=== PATIENT | female | born 1970 | race Caucasian/White ===

== ENCOUNTER 2017-01-06 17:29 | Emergency (ER) | payer BC ==
[2017-01-06 18:42] VITALS: BP 103/58
--- NOTE | 2017-01-06 18:49 | UC ---
Complaint Female HPI - HPI Summary HPI Summary: patient complains of bladder and vaginal irritation since this morning. - History Of Current Complaint Chief Complaint: UCGU Stated Complaint: URINARY Time Seen by Provider: 01/06/17 18:35 Hx Obtained From: Patient Hx Last Menstrual Period: 2 wks ago ?: No Onset/Duration: Sudden Onset, Lasting Hours Timing: Lasting Hours Severity Initially: Mild Severity Currently: Mild Character: Burning Aggravating Factor(s): Urination - Allergies/Home Medications Allergies/Adverse Reactions: Allergies Allergy/AdvReac Type Severity Reaction Status Date / Time Amoxicillin [From Augmentin] Allergy Nausea Verified 01/06/17 18:35 Azithromycin [From Zithromax] Allergy Hives Verified 01/06/17 18:35 Cephalexin Allergy Rash Verified 01/06/17 18:35 Clavulanic Acid Allergy Nausea Verified 01/06/17 18:35 [From Augmentin] Doxycycline Allergy Rash Verified 01/06/17 18:35 Levofloxacin [From Levaquin] Allergy Hives Verified 01/06/17 18:35 Sulfa Antibiotics Allergy Hives Verified 01/06/17 18:35 Home Medications: Home Medications Methylphenidate TAB* [Ritalin TAB*] 10 mg PO DAILY 01/06/17 [History Confirmed 01/06/17] Multivitamins/Minerals TAB* [Thera M Plus TAB*] 1 tab PO DAILY 01/06/17 [ History Confirmed 01/06/17] Suvorexant [Belsomra] 20 mg PO BEDTIME 01/06/17 [History Confirmed 01/06/17] PMH/Surg Hx/FS Hx/Imm Hx Previously Healthy: Yes - Surgical History Surgical History: Yes Surgery Procedure, Year, and Place: 2009 fibroid removed from uterus, tonsillectomy, lasik eye surgery 2000, cyts removed from from right leg - Family History Known Family History: Negative: Cardiac Disease, Hypertension - Social History Alcohol Use: Occasionally Substance Use Type: None Smoking Status (MU): Never Smoked Tobacco Review of Systems Constitutional: Negative Skin: Negative Eyes: Negative ENT: Negative Respiratory: Negative Cardiovascular: Negative Gastrointestinal: Abdominal Pain Genitourinary: Dysuria, Frequency, Urgency Motor: Negative Neurovascular: Negative Musculoskeletal: Negative Neurological: Negative Psychological: Negative All Other Systems Reviewed And Are Negative: Yes Physical Exam Triage Information Reviewed: Yes Appearance: Well-Appearing, Well-Nourished, Pain Distress Vital Signs: Initial Vital Signs Temp 99.2 F 01/06/17 18:37 Pulse 61 01/06/17 18:37 Resp 16 01/06/17 18:37 BP 103/58 01/06/17 18:37 Pulse Ox 100 01/06/17 18:37 Vital Signs Reviewed: Yes Eye Exam: Normal Eyes: Positive: Conjunctiva Clear ENT Exam: Normal ENT: Positive: Normal ENT inspection, Hearing grossly normal, TMs normal Dental Exam: Normal Neck exam: Normal Respiratory Exam: Normal Respiratory: Positive: Chest non-tender, Lungs clear, Normal breath sounds Cardiovascular Exam: Normal Cardiovascular: Positive: RRR, No Murmur, Pulses Normal Abdominal Exam: Normal Abdomen Description: Positive: No Organomegaly, Soft, Other: - lower abdomen tenderness Bowel Sounds: Positive: Present Musculoskeletal Exam: Normal Neurological Exam: Normal Psychological Exam: Normal Skin Exam: Normal Complaint Female Dx - Course Course Of Treatment: hx obtained, exam performed, meds reviewed, UA - Differential Dx/Diagnosis Differential Diagnosis/HQI/PQRI: Sexually Transmitted Disease, Ureteral Stone, Urinary Tract Infection Provider Diagnoses: vagintitis. UTI Discharge - Discharge Plan Condition: Stable Disposition: HOME Prescriptions: Fosfomycin Tromethamine [Monurol] 5.631 gm PO ONCE #1 faye Nystatin CREAM* 1 applic TOPICAL BID #1 tube Patient Education Materials: Dysuria (ED) Referrals: Oscar Julio MD [Primary Care Provider] - Additional Instructions: 1. take the medication as prescribed 2. Increase your fluid intake and get plenty of rest.
== END 2017-01-06 19:15 | disposition home or self-care (01) ==
LOC: UCCORT 17:29
DX: N76.0 Acute vaginitis (principal); N39.0 Urinary tract infection, site not specified; Z88.1 Allergy status to other antibiotic agents; Z88.2 Allergy status to sulfonamides
CPT/HCPCS: 81003; 87086; 99212; G0463